=== PATIENT | male | born 1960 | race Caucasian/White ===

== ENCOUNTER 2023-05-29 15:34 | Emergency (ER) | payer OTHER ==
[2023-05-29 16:17] VITALS: BP 117/75; PULSE 93; RESP 18; TEMP 98.5; BMI 27.8
[2023-05-29] MEDS ORDERED: ACETAMINOPHEN 1000 MG/100 ML BAG IVPB ONE (17:06)
[2023-05-29 19:17] LABS: POTASSIUM 3.7 mmol/L (3.5-5.1)
[2023-05-29 19:19] LABS: ALBUMIN 3.3 g/dl (3.4-5.0); BLOOD UREA NITROGEN 14.9 mg/dL (7-18)
[2023-05-29 19:20] LABS: BASO % 0.4 % (0-2.0); EOS % 1.8 % (0-4.5); HEMATOCRIT 51.8 % (35.4-49); LYMPH % 29.3 % (8-40); MCH 28.4 pg (25.7-33.7); MCHC 32.9 g/dl (32.0-35.9); MEAN CELL VOLUME 86.4 fl (80-96); MONO % 8.3 % (3.8-10.2); NEUT % 60.2 % (42.8-82.8); RDW 13.9 % (11.9-15.9); WHITE BLOOD COUNT 6.8 K/mm3 (4.0-10.0)
[2023-05-29 19:24] LABS: BILIRUBIN,TOTAL 0.4 mg/dL (0.2-1)
[2023-05-29 19:34] LABS: MEAN PLT VOLUME 9.2 fl (7.5-11.1); PLATELET COUNT 197 10^3/uL (134-434)
[2023-05-29 19:35] LABS: PLATELET ESTIMATE ADEQUATE
== END 2023-05-29 20:14 | disposition home or self-care (01) ==
LOC: JER 15:34
PROC: 3E033NZ Introduction of Analgesics, Hypnotics, Sedatives into Peripheral Vein, Percutaneous Approach (ICD-10-PCS; principal; 2023-05-29)
DX: S32.502A Unspecified fracture of left pubis, initial encounter for closed fracture (principal); S22.32XA Fracture of one rib, left side, initial encounter for closed fracture; W10.9XXA Fall (on) (from) unspecified stairs and steps, initial encounter; Y92.9 Unspecified place or not applicable
CPT/HCPCS: 36415; 71046-TC-FY; 71250-TC; 72170-TC-FY; 73502-TC-LT-FY; 73552-TC-LT-FY; 73590-TC-LT-FY; 80053; 84484; 85025; 93005; 93010; 99285-25